=== PATIENT | male | born 1965 | race African-American/Black ===

== ENCOUNTER 2018-03-26 11:50 | Emergency (ER) | payer OTHER ==
[2018-03-26 13:33] LABS: URINE BLOOD (Dip) POC Negative (NEGATIVE); URINE GLUCOSE (Dip) POC Negative (NEGATIVE); URINE KETONES (Dip) POC Negative (NEGATIVE); URINE LEUKOCYTE EST (Dip) POC Negative (NEGATIVE); URINE NITRITE (Dip) POC Negative (NEGATIVE); URINE TOTAL PROTEIN POC Negative (NEGATIVE)
[2018-03-26 13:33] LABS: URINE PH (Dip) POC 5.5 (5.0-8.5)
[2018-03-26] MEDS: AZITHROMYCIN 250 MG TAB PO (13:36)
[2018-03-26] MEDS: CEFTRIAXONE 250 MG INJ IM (13:37)
== END 2018-03-26 14:12 | disposition home or self-care (01) ==
LOC: FTE 11:50
DX: A64 Unspecified sexually transmitted disease (principal); R36.9 Urethral discharge, unspecified
CPT/HCPCS: 81003; 87591; 96372; 99284-25